=== PATIENT | male | born 1975 | race Two or more races ===

== ENCOUNTER 2017-01-18 12:22 | Emergency (ER) | payer OTHER ==
[~2017-01-18] VITALS: Ht 175.3 cm; Wt 77.1 kg
--- OUTSIDE RECORDS SUMMARY | 2017-01-18 12:59 | External Medical Summary Rpt | CCD ---
Author Author [facility] Organization [facility] Address Unknown Phone Unavailable Purpose Continuity of Care Document - through 2016
--- OUTSIDE RECORDS SUMMARY | 2017-01-18 12:59 | External Medical Summary Rpt | CCD ---
Demographics Preferred Language Hebrew Marital Status Unknown Orthodoxy Affiliation Unknown Race Unknown Ethnic Group Unknown Author Author , [place] [facility]ASS[place] Address Unknown Phone Immunization No patient found.
--- OUTSIDE RECORDS SUMMARY | 2017-01-18 12:59 | External Medical Summary Rpt ---
Demographics Preferred Language Unknown Marital Status Unknown Anabaptism Affiliation Unknown Race Unknown Ethnic Group Unknown Author Author [place], [place] [employer] Organization [place] [employer] Address Unknown Phone Unavailable
--- OUTSIDE RECORDS SUMMARY | 2017-01-18 12:59 | External Medical Summary Rpt ---
Demographics Preferred Language Unknown Marital Status Unknown Voodoo Affiliation Unknown Race Unknown Ethnic Group Unknown Author Author [place], [place] [employer] Organization [place] [employer] Address Unknown Phone Unavailable
--- OUTSIDE RECORDS SUMMARY | 2017-01-18 12:59 | External Medical Summary Rpt | CCD ---
Demographics Preferred Language Dutch Marital Status Unknown Confucianist Affiliation Unknown Race Unknown Ethnic Group Unknown Author Author [place] Address Unknown Phone [email or web address] Purpose Continuity of Care Document - through 2016
--- OUTSIDE RECORDS SUMMARY | 2017-01-18 12:59 | External Medical Summary Rpt | CCD ---
Demographics Preferred Language Lao Marital Status Unknown Yazdanism Affiliation Unknown Race Unknown Ethnic Group Unknown Author Author , [place] Address Unknown Phone Immunization No patient found.
--- OUTSIDE RECORDS SUMMARY | 2017-01-18 12:59 | External Medical Summary Rpt | CCD ---
Demographics Preferred Language Moldovan Marital Status Unknown Jainism Affiliation Unknown Race Unknown Ethnic Group Unknown Author Author [place] Address Unknown Phone [email or web address] Purpose Continuity of Care Document - through 2016
--- NOTE | 2017-01-18 13:11 | Emergency Room Report ---
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 N Clinical Suspician of Infection? N Mental Status: 1 - Regular (Normal Baseline) Sepsis Risk:Low Sepsis Risk Have you (or family members/close friends) recently traveled outside the [place]? N If Yes, where/when: Have you had exposure to infectious disease within the past month? N TB? Other? 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 No neck pain; no headache, no other symptoms. Reports last tetanus greater than five years ago. BP noted to elevated on arrival. ALLERGIES Coded Allergies: No Known Allergies (01/18/17) History Medical History General CAD? No Angina: No [place]: No Hypertension? No Hyperlipidemia? No CHF? No DVT? No PE? No COPD? No Asthma? No Anemia? No GERD? No Gastric ulcers? No GI Bleed? No Hernia? No Thyroid Problems? No Hypothyroidism? No CVA? No Seizures? No Diabetes? No Renal Insuffiency? No End Stage Renal Disease? No UTI? No Stones? No BPH? No GB Disease: No Nephritic Syndrome? No Asplenia? No Hepatitis? No Sickle Cell Disease? No Arthritis? No Migraines? No Cataracts? No Glaucoma? No MRSA? No HIV? No TB? No Anxiety? No Depression? No Cancer? No Site: N More? No Immunization Hx DT/Tetanus Has Never Had Surgical Hx Previous Surgery?N Social History Smoking Hx Smoker: Never Smoker Tobacco: No Review of Systems All Other Systems Reviewed and Negative Skin see HPI Physical Exam Vital Signs Vital Signs Date Time Temp Pulse Resp B/P Pulse O2 O2 Flow FiO2 Ox Delivery Rate 01/18 1242 97.6 71 18 155/105 99 General Appearance normal appearance, WD/WN, no apparent distress Eye Exam - bilateral eye normal exam, bilateral eye PERRL, bilateral eye EOMI Ear, Nose, Throat no epistaxis; no facial trauma; has abrasion about five cm in diameter to upper scalp; also has 1.5 L shaped laceration to left of abrasion, bleeding controlled, no FB noted, through subcutaneous tissue only. Neck normal inspection, non-tender, supple, full range of motion Respiratory Status No: respiratory distress. 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 No Results/Orders Current Medication Orders Sig/Cuate Start time Last Medication Dose Route Stop Time Status Admin Diphtheria/Pertussis/ 0 .STK-MED ONE 01/18 1257 DC Tetanus Vacc IM Ketorolac 0 .STK-MED ONE 01/18 1254 DC Tromethamine .ROUTE Procedures Laceration/Wound Repair Laceration/Wound Repair Risks/benefits discussed with pt/guardian? Yes Tetanus status not up to date (updated in ER today) Wound Location head Wound Length (cm) 1.5 Wound's Depth, Shape sucutaneous tissue Wound Explored clean Irrigated w/ Saline (ccs) 50 Wound Prep Hibiclens Wound Debrided none Wound Repaired With yessy Suture Size/Type n/a yessy Layer Closure No Total Number Sutures 5 Sterile Dressing Applied No Departure Departure Time of Disposition 1308 Disposition DC Home or Self Care(routine) Clinical Impression Primary Impression: Laceration of head Qualifiers: Encounter type: initial encounter Location of open wound of head: scalp Foreign body presence: without foreign body Qualified Code: S01.01XA - Laceration without foreign body of scalp, initial encounter Secondary Impressions: Abrasion head Condition STABLE Patient Instructions DI for Laceration Repair -- [place] Additional Instructions Yessy out from MD of choice, see list provided by RN at discharge, removal to be done in one week; return to work tomorrow, January 19, 2017, make sure head wound covered at all times and do not get it wet or soaked other than twice a day washing with clean washcloth and mild soap with warm water, then promptly dry wound and hair. Recommend over the counter Ibuprofen as needed for pain. Discharge Counseling Counseled pt/family regarding diagnosis, medications/RX, home care, follow up needs ED Critical Care Critical Care No at 1318
--- NOTE | 2017-01-18 13:11 | Emergency Room Report ---
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 N Clinical Suspician of Infection? N Mental Status: 1 - Regular (Normal Baseline) Sepsis Risk:Low Sepsis Risk Have you (or family members/close friends) recently traveled outside the [place]? N If Yes, where/when: Have you had exposure to infectious disease within the past month? N TB? Other? 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 No neck pain; no headache, no other symptoms. Reports last tetanus greater than five years ago. BP noted to elevated on arrival. ALLERGIES Coded Allergies: No Known Allergies (01/18/17) History Medical History General CAD? No Angina: No [place]: No Hypertension? No Hyperlipidemia? No CHF? No DVT? No PE? No COPD? No Asthma? No Anemia? No GERD? No Gastric ulcers? No GI Bleed? No Hernia? No Thyroid Problems? No Hypothyroidism? No CVA? No Seizures? No Diabetes? No Renal Insuffiency? No End Stage Renal Disease? No UTI? No Stones? No BPH? No GB Disease: No Nephritic Syndrome? No Asplenia? No Hepatitis? No Sickle Cell Disease? No Arthritis? No Migraines? No Cataracts? No Glaucoma? No MRSA? No HIV? No TB? No Anxiety? No Depression? No Cancer? No Site: N More? No Immunization Hx DT/Tetanus Has Never Had Surgical Hx Previous Surgery?N Social History Smoking Hx Smoker: Never Smoker Tobacco: No Review of Systems All Other Systems Reviewed and Negative Skin see HPI Physical Exam Vital Signs Vital Signs Date Time Temp Pulse Resp B/P Pulse O2 O2 Flow FiO2 Ox Delivery Rate 01/18 1242 97.6 71 18 155/105 99 General Appearance normal appearance, WD/WN, no apparent distress Eye Exam - bilateral eye normal exam, bilateral eye PERRL, bilateral eye EOMI Ear, Nose, Throat no epistaxis; no facial trauma; has abrasion about five cm in diameter to upper scalp; also has 1.5 L shaped laceration to left of abrasion, bleeding controlled, no FB noted, through subcutaneous tissue only. Neck normal inspection, non-tender, supple, full range of motion Respiratory Status No: respiratory distress. 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 No Results/Orders Current Medication Orders Sig/Cuate Start time Last Medication Dose Route Stop Time Status Admin Diphtheria/Pertussis/ 0 .STK-MED ONE 01/18 1257 DC Tetanus Vacc IM Ketorolac 0 .STK-MED ONE 01/18 1254 DC Tromethamine .ROUTE Procedures Laceration/Wound Repair Laceration/Wound Repair Risks/benefits discussed with pt/guardian? Yes Tetanus status not up to date (updated in ER today) Wound Location head Wound Length (cm) 1.5 Wound's Depth, Shape sucutaneous tissue Wound Explored clean Irrigated w/ Saline (ccs) 50 Wound Prep Hibiclens Wound Debrided none Wound Repaired With yessy Suture Size/Type n/a yessy Layer Closure No Total Number Sutures 5 Sterile Dressing Applied No Departure Departure Time of Disposition 1308 Disposition DC Home or Self Care(routine) Clinical Impression Primary Impression: Laceration of head Qualifiers: Encounter type: initial encounter Location of open wound of head: scalp Foreign body presence: without foreign body Qualified Code: S01.01XA - Laceration without foreign body of scalp, initial encounter Secondary Impressions: Abrasion head Condition STABLE Patient Instructions DI for Laceration Repair -- [place] Additional Instructions Yessy out from MD of choice, see list provided by RN at discharge, removal to be done in one week; return to work tomorrow, January 19, 2017, make sure head wound covered at all times and do not get it wet or soaked other than twice a day washing with clean washcloth and mild soap with warm water, then promptly dry wound and hair. Recommend over the counter Ibuprofen as needed for pain. Discharge Counseling Counseled pt/family regarding diagnosis, medications/RX, home care, follow up needs ED Critical Care Critical Care No at 1319
[2017-01-18 13:48] VITALS: BP 155/105
== END 2017-01-18 13:40 | disposition home or self-care (01) ==
LOC: ER 12:22
PROC: 0HQ0XZZ Repair Scalp Skin, External Approach (ICD-10-PCS; principal; 2017-01-18)
DX: S01.01XA Laceration without foreign body of scalp, initial encounter (principal); Z23 Encounter for immunization; W22.8XXA Striking against or struck by other objects, initial encounter; Y92.69 Other specified industrial and construction area as the place of occurrence of the external cause; Y99.0 Civilian activity done for income or pay